=== PATIENT | male | born 1950 | race Caucasian/White ===

== ENCOUNTER 2017-02-19 02:25 | Emergency (ER) | payer MEDICARE, BC ==
[2017-02-19] MEDS ORDERED: ASPIRIN 81 MG CHEWABLE CTB PO STA (02:28)
[2017-02-19] MEDS ORDERED: NITROGLYCERIN 0.4 MG TAB SL PRN (02:28)
[2017-02-19] MEDS ORDERED: SODIUM CHLORIDE 0.9% FLUSH 10 ML SOL IV PRN (02:28)
[2017-02-19] MEDS ORDERED: ASPIRIN 81 MG CHEWABLE CTB ONE (02:34)
[2017-02-19] MEDS ORDERED: NITROGLYCERIN 0.4 MG TAB SL ONE (02:36)
[2017-02-19 02:40] VITALS: TEMP 97.8
[2017-02-19 02:46] LABS: BASOPHILS % (AUTO) 1 % (0-3); EOSINOPHILS % (AUTO) 2 % (0-9); HEMATOCRIT 38 % (39-53); MEAN CORPUSCULAR HGB CONC 34.3 gm/dl (32.0-36.0); MEAN CORPUSCULAR VOLUME 85 fL (80-100); MONOCYTES % (AUTO) 7.9 % (0-12); NEUTROPHILS % (AUTO) 65.7 % (37-80)
[2017-02-19 02:50] VITALS: O2SAT 94
[2017-02-19 03:00] LABS: ALBUMIN 3.5 gm/dl (3.4-5.0); ALT 25 IU/L (14-63); CALCIUM 8.4 mg/dl (8.5-10.1); GLOM FILT RATE 70 mL/min (>60); POTASSIUM 3.7 mMol/L (3.5-5.1); SODIUM 137 mMol/L (136-145)
[2017-02-19] MEDS ORDERED: LIDOCAINE HCL 2% (VISCOUS) 20 ML SOL MT ONE (03:04)
[2017-02-19] MEDS ORDERED: ALUMINUM/MAGNESIUM 30 ML SUS PO ONE (03:04)
[2017-02-19] MEDS ORDERED: ALUMINUM/MAGNESIUM 30 ML SUS ONE (03:06)
[2017-02-19 03:29] VITALS: BP 120/72; PULSE 71; RESP 12
== END 2017-02-19 03:35 | disposition home or self-care (01) | DRG 313 ==
LOC: ED 02:25
DX: R07.89 Other chest pain (principal); K21.9 Gastro-esophageal reflux disease without esophagitis
CPT/HCPCS: 71010; 80053; 82550; 83735; 84100; 84484; 85025; 85610; 85730; 93005; 99285

== ENCOUNTER 2018-06-29 07:34 | Day surgery (SDC) | payer MEDICARE, BC ==
[2018-06-29] MEDS ORDERED: PROPOFOL 500 MG/50 ML EMU IV ONE (08:01)
[2018-06-29] MEDS ORDERED: LIDOCAINE HCL 1% MPF 30 SOL ONE (08:01)
[2018-06-29 10:07] VITALS: TEMP 97.8
[2018-06-29 10:33] VITALS: BP 108/75; PULSE 68; RESP 20; O2SAT 95
[2018-06-29 11:34] LABS: PATHOLOGY SPEC OR BIOPSY REFER MAYO/MKTO PATH
== END 2018-06-29 11:00 | disposition home or self-care (01) | DRG 951 ==
LOC: SURG 07:34
PROVIDERS: ATTEND Internal Medicine Gastroenterology
DX: Z12.11 Encounter for screening for malignant neoplasm of colon (principal); Z86.010 Personal history of colon polyps; D64.9 Anemia, unspecified; L53.8 Other specified erythematous conditions; K64.8 Other hemorrhoids; K62.1 Rectal polyp; D12.3 Benign neoplasm of transverse colon
CPT/HCPCS: J2001; J2704

== ENCOUNTER 2018-08-31 08:52 | Day surgery (SDC) | payer MEDICARE, BC ==
[~2018-08-31 08:52] MED LIST: LIDOCAINE HCL 1% MPF 30 SOL ONE; PROPOFOL 500 MG/50 ML EMU IV ONE
[2018-08-31 10:57] VITALS: TEMP 97.3
[2018-08-31 11:25] VITALS: O2SAT 96
[2018-08-31 11:37] VITALS: RESP 20
[2018-08-31 11:46] VITALS: BP 138/74; PULSE 63
== END 2018-08-31 11:55 | disposition home or self-care (01) | DRG 395 ==
LOC: SURG 08:52
PROVIDERS: ATTEND Internal Medicine Gastroenterology
DX: Q43.8 Other specified congenital malformations of intestine (principal); K63.5 Polyp of colon; K64.8 Other hemorrhoids; K52.89 Other specified noninfective gastroenteritis and colitis
CPT/HCPCS: J2001; J2704